=== PATIENT | female | born 1960 | race Two or more races ===

== ENCOUNTER 2024-11-29 20:07 | Emergency (ER) | payer OTHER ==
[~2024-11-29] VITALS: Ht 167.6 cm; Wt 68.0 kg
[2024-11-29] MEDS ORDERED: PANTOPRAZOLE SODIUM 40 MG in 0.9 % SODIUM CHLORIDE 8 ML IV PUSH STA (21:01)
[2024-11-29] MEDS ORDERED: 0.9 % SODIUM CHLORIDE 1,000 ML IV SCH (21:15)
[2024-11-29] MEDS ORDERED: MORPHINE SULFATE 4 MG/ML VIAL IV ONE (21:15)
[2024-11-29 21:55] LABS: BASO % 0.9 % (0.1-1.2); EOS # 0.10 (0.04-0.54); EOS % 1.2 % (0.7-7.0); LYMPH # 1.40 (1.18-3.74); LYMPH % 17.1 % (19.3-53.1); MEAN PLATELET VOLUME 10.30 fl (9.4-12.4); MONO # 0.82 (0.24-0.82); MONO % 10.0 % (4.7-12.5); NEUT # 5.77 (1.56-6.13); NEUT % 70.7 % (34.0-71.1); RED CELL DISTRIBUTION WIDTH 13.5 % (11.6-14.4)
[2024-11-29 22:25] LABS: ALT/SGPT 20.0 U/L (12-78); AST/SGOT 14.0 U/L (15-37); BILIRUBIN TOTAL 0.37 mg/dL (0.3-1.2); BUN CREA RATIO 11.0 (7.0-25.0); CREATININE SERUM 0.9 mg/dL (0.55-1.02); GFR 62.64; GLOBULINA 3.4 G/DL (2.4-3.5); GLUCOSE FASTING 113.0 mg/dL (65-100); OSMOLALITY SERUM 277.0 MOSM/KG (275-295)
[2024-11-29] MEDS ORDERED: OxyCODONE HCL 5 MG TABLET (ROXICODONE) PO ONE (22:45)
== END 2024-11-29 23:45 | disposition home or self-care (01) ==
LOC: ER 20:07
PROVIDERS: General Practice
DX: K57.92 Diverticulitis of intestine, part unspecified, without perforation or abscess without bleeding (principal); R10.32 Left lower quadrant pain; R10.9 Unspecified abdominal pain
CPT/HCPCS: 36415; 96365; 96366; 99282; J2270; J7030